=== PATIENT | male | born 1975 | race Caucasian/White ===

== ENCOUNTER 2019-02-01 14:28 | Emergency (ER) | payer OTHER ==
[~2019-02-01] VITALS: Ht 180.3 cm; Wt 109.0 kg
[2019-02-01 14:36] VITALS: BP 137/83
[2019-02-01] MEDS ORDERED: PLEASE ENTER ALLERGIES MC SCH (15:00)
[2019-02-01] MEDS ORDERED: KETOROLAC 30 MG/1 ML IM ONE (15:00)
[2019-02-01] MEDS ORDERED: KETOROLAC 30 MG/1 ML ONE (15:16)
== END 2019-02-01 15:33 | disposition home or self-care (01) ==
LOC: ED 15:27
DX: S83.92XA Sprain of unspecified site of left knee, initial encounter (principal); I10 Essential (primary) hypertension; E11.9 Type 2 diabetes mellitus without complications; Z88.5 Allergy status to narcotic agent; X50.1XXA Overexertion from prolonged static or awkward postures, initial encounter; Y93.53 Activity, golf; Y92.328 Other athletic field as the place of occurrence of the external cause; Y99.8 Other external cause status
CPT/HCPCS: 29505; 99283